=== PATIENT | male | born 1975 | race Caucasian/White ===

== ENCOUNTER 2022-05-03 09:31 | Outpatient (CLI) | payer OTHER, SELFPAY | END 2022-05-03 09:32 | disposition home or self-care (01) | PROVIDERS: PCP Physician Assistant Medical; Visit Provider Physician Assistant Medical | DX: Z00.00 Encounter for general adult medical examination without abnormal findings (principal); R42 Dizziness and giddiness; N52.9 Male erectile dysfunction, unspecified | CPT/HCPCS: 80053; 80061; 84443 ==

== ENCOUNTER 2022-06-09 09:45 | Outpatient (RCR) | payer OTHER, SELFPAY | END 2022-09-21 23:59 | disposition home or self-care (01) | PROVIDERS: PCP Physician Assistant Medical; Visit Provider Physician Assistant Medical | DX: H81.13 Benign paroxysmal vertigo, bilateral (principal); Z51.89 Encounter for other specified aftercare | CPT/HCPCS: 97112; 97140; 97161 ==